=== PATIENT | female | born 1995 | race Caucasian/White ===

== ENCOUNTER 2022-07-02 06:51 | Inpatient (IN) | payer BC, MEDICAID ==
[~2022-07-02 06:51] MED LIST: Lidocaine 1% 10 ML MDV ONE
[2022-07-02] MEDS ORDERED: Sodium Chloride 0.9% 10 ML Syringe FLUSH PRN (06:57)
[2022-07-02] MEDS ORDERED: Acetaminophen 325 MG Tab PO PRN (06:57)
[2022-07-02] MEDS ORDERED: Misoprostol 25 MCG (1/4 of 100 MCG) Tab PO PRN (06:57)
[2022-07-02] MEDS ORDERED: Ondansetron 4 MG/2 ML SDV IVPUSH PRN (06:58)
[2022-07-02] MEDS ORDERED: Nalbuphine 10 MG/0.5 ML Syringe IVPUSH PRN (06:58)
[2022-07-02] MEDS ORDERED: Misoprostol 25 MCG (1/4 of 100 MCG) Tab VAG PRN (07:57)
[2022-07-02] MEDS ORDERED: ePHEDrine 50 MG/ML SDV IVPUSH PRN (08:01)
[2022-07-02] MEDS ORDERED: diphenhydrAMINE 50 MG/ML SDV IVPUSH PRN (08:01)
[2022-07-02] MEDS ORDERED: fentaNYL 100 MCG/2 ML SDV EPIDUR PRN (08:01)
[2022-07-02] MEDS ORDERED: Sodium Chloride 0.9% 10 ML Syringe FLUSH SCH (09:00)
[2022-07-02] MEDS: Lactated Ringers 1,000 ML IV SCH (12:56)
[2022-07-02] MEDS: Bupivacaine/fentaNYL/NS 100 ML Bag EPIDUR PRN ×2 (13:37→18:55)
[2022-07-02] MEDS: Oxytocin/Lactated Ringers 10 UNIT/1,000 ML BAG IV SCH ×2 (14:31→23:43)
[2022-07-02] MEDS ORDERED: Citric Acid/Sodium Citrate Solution 30 ML Cup PO ONE (22:12)
[2022-07-02] MEDS ORDERED: Azithromycin 500 MG in Sodium Chloride 0.9% 250 ML IV ONE (22:12)
[2022-07-02] MEDS ORDERED: Metoclopramide 10 MG/2 ML SDV IVPUSH ONE (22:12)
[2022-07-02] MEDS ORDERED: ceFAZolin 2 GM in Sodium Chloride 0.9% 50 ML IV ONE (22:12)
[2022-07-02] MEDS ORDERED: Methylergonovine 0.2 MG/ML SDV IM ONE (23:24)
[2022-07-02] MEDS ORDERED: Misoprostol 200 MCG Tab PO STA (23:24)
[2022-07-02] MEDS ORDERED: ceFAZolin 2 GM Vial ONE (23:24)
[2022-07-02] MEDS ORDERED: Methylergonovine 0.2 MG/1 ML Amp IM ONE (23:30)
[2022-07-02] MEDS ORDERED: Tranexamic Acid 1,000 MG/10 ML Vial IVPUSH ONE (23:45)
[2022-07-03] MEDS: Lactated Ringers 1,000 ML IV SCH (00:13)
[2022-07-03] MEDS ORDERED: Witch Hazel Medicated Pads 40/Jar TOP PRN (00:30)
[2022-07-03] MEDS ORDERED: Ibuprofen 600 MG Tab PO PRN (00:30)
[2022-07-03] MEDS ORDERED: Docusate Sodium 100 MG Cap PO PRN (00:30)
[2022-07-03] MEDS ORDERED: Acetaminophen 325 MG Tab PO PRN (00:30)
[2022-07-03] MEDS ORDERED: Benzocaine/Menthol 20%-0.5% Spray 78 GM Cannister TOP PRN (00:30)
[2022-07-03] MEDS ORDERED: Sodium Chloride 0.9% 1,000 ML IV SCH (17:30)
[2022-07-03] MEDS ORDERED: Sodium Chloride 0.9% 250 ML IV SCH (17:45)
[2022-07-04 08:44] VITALS: BP 123/63; PULSE 93
== END 2022-07-04 10:00 | disposition home or self-care (01) | DRG 806 ==
LOC: JD.OBCHECK 06:51 → UNDOADMOB 06:55 → JD.OB 06:55 → OBSVTOIN 22:52 → JD.OB 22:52
PROVIDERS: ADMIT Obstetrics & Gynecology; ATTEND Obstetrics & Gynecology
PROC: 10E0XZZ Delivery of Products of Conception, External Approach (ICD-10-PCS; principal; 2022-07-02)
PROC: 0KQM0ZZ Repair Perineum Muscle, Open Approach (ICD-10-PCS; 2022-07-02)
PROC: 10D17Z9 Manual Extraction of Products of Conception, Retained, Via Natural or Artificial Opening (ICD-10-PCS; 2022-07-02)
PROC: 10907ZC Drainage of Amniotic Fluid, Therapeutic from Products of Conception, Via Natural or Artificial Opening (ICD-10-PCS; 2022-07-02)
PROC: 3E033VJ Introduction of Other Hormone into Peripheral Vein, Percutaneous Approach (ICD-10-PCS; 2022-07-02)
PROC: 3E0R3BZ Introduction of Anesthetic Agent into Spinal Canal, Percutaneous Approach (ICD-10-PCS; 2022-07-02)
PROC: 00HU33Z Insertion of Infusion Device into Spinal Canal, Percutaneous Approach (ICD-10-PCS; 2022-07-02)
PROC: 30243N1 Transfusion of Nonautologous Red Blood Cells into Central Vein, Percutaneous Approach (ICD-10-PCS; 2022-07-02)
DX: O48.0 Post-term pregnancy (principal); O72.1 Other immediate postpartum hemorrhage; Z37.0 Single live birth; Z3A.41 41 weeks gestation of pregnancy; O69.81X0 Labor and delivery complicated by cord around neck, without compression, not applicable or unspecified; O70.1 Second degree perineal laceration during delivery
CPT/HCPCS: 01967; 36415; 36430; 51701; 51702; 59025; 59409; 85027; 86592; 86850; 86900; 86901; 86922; A9270-GY; J0690; J2210; J2590; J3010; J3490; J7120; P9016